=== PATIENT | female | born 1950 | race African-American/Black ===

== ENCOUNTER → 2017-01-06 | Outpatient (CLI) | payer OTHER ==
--- NOTE | ~2017-01-06 | MR17 ---
[facility] A Service of [facility] & [facility] RADIOLOGY TEXT RESULTS PATIENT: KRIS DO LOCATION: [facility] : 46 UNIT #: [id number] AGE: [address]: Iglesia Ahn II, MD SEX: F ORDER DR: [id number] [facility] [address] [place], [place] [address] [id number] O MR#: [id number] Acc #: [id number] NAME: KRIS DO : 1950 SEX: F STUDY DATE/TIME: 01/06/2017 13:16 UNIT: [facility] ROOM: STUDY DESCRIPTION: MR Brain WWo Contrast Attending Physician: Iglesia Ahn II., M.D. Referring Physician: Iglesia Ahn II., M.D. Ordering Physician: Iglesia Ahn II., M.D. Primary Care Physician: Luisito Wynne Sr., M.D. MRI CENTER REPORT This report is preliminary unless electronic signature is present. EXAM MRI of the brain with and without contrast dated 01/06/2017. COMPARISON Report of MRI brain with without contrast dated 05/29/2015 from [facility]. The images themselves have not been given. TECHNIQUE Multisequence multiplanar imaging of the brain was obtained with and without contrast. GFR measured greater than 60. 15 mL of MultiHance was administered intravenously. FINDINGS No acute stroke, space-occupying intracranial mass, mass effect, midline shift or hydrocephalus. Postcontrast sequences do not demonstrate enhancing lesions. Thick slices through the sella with the pituitary gland, pineal region and upper cervical spine are within normal limits. S-shaped nasal septal deviation is seen. Paranasal sinuses, orbits, the ocular structures and mastoids do not demonstrate any significant abnormality. IMPRESSION Within normal limits. Dictated by... Duc Tavarez M.D. THIS IS AN ELECTRONICALLY VERIFIED REPORT Duc Tavarez M.D. at 01/10/2017 3:18 PM CPR/gz TD: 01/09/2017 08:58 JOB #: [id number] [facility] A Service of [facility] & [facility] RADIOLOGY TEXT RESULTS PATIENT: KRIS [facility] UN[facility] #: [id number] AGE: [address]: Iglesia Ahn II, MD SEX: F ORDER DR: MRI CENTER REPORT Page 1 of 1 COPY
[2017-01-06 13:10] LABS: POC - CREATININE 0.68 mg/dL (0.44-1.03); POC - GFR >60.0 mL/min (>60)
== END | disposition home or self-care (01) ==
LOC: CMRI 12:46
PROVIDERS: Psychiatry & Neurology Neurology
DX: R41.3 Other amnesia (principal)
CPT/HCPCS: 70553; 82565; A9577